=== PATIENT | male | born 1930 | race Caucasian/White ===

== ENCOUNTER 2018-08-13 09:44 | Emergency (ER) | payer MEDICARE, BC ==
--- NOTE | 2018-08-13 10:49 | EDM.PDOC ---
ED HPI GENERAL MEDICAL PROBLEM - General Chief Complaint: Cardiovascular Problem Stated Complaint: Shortness of breath Time Seen by Provider: 08/13/18 10:20 Source of Information: Reports: Patient History Limitations: Reports: No Limitations - History of Present Illness INITIAL COMMENTS - FREE TEXT/NARRATIVE: Patient sent to the ER from the [facility] for complaint of SOB. Usually uses O2 at night for COPD. The overall increased SOB has been present "for some time" per patient, but got noticeably worse over the last 48 hours. Neb treatments given were helpful for "5 minutes". He denies any other acute changes other than increased fluid retention in the lower extremities. No other signs of illness reported. Denies HEENT changes/URI complaints. No cough or mucus production. - Related Data Allergies Allergy/AdvReac Type Severity Reaction Status Date / Time Penicillins Allergy Facial Verified 08/13/18 10:13 Swelling Home Meds: Home Meds Acyclovir 200 mg PO DAILY 08/13/18 [History] Albuterol [Ventolin HFA] 2 puff INH Q6H PRN 08/13/18 [History] Albuterol/Ipratropium [DuoNeb 3.0-0.5 MG/3 ML] 1 vial INH Q4H PRN 08/13/18 [ History] Allopurinol [Zyloprim] 50 mg PO DAILY 08/13/18 [History] Budesonide/Formoterol [Symbicort 160-4.5 MCG] 2 puff INH BID@08,20 08/13/18 [ History] Cetirizine [ZyrTEC] 10 mg PO DAILY 08/13/18 [History] Cholecalciferol (Vitamin D3) [Vitamin D3] 1,000 unit PO DAILY 08/13/18 [History] Cyanocobalamin (Vitamin B-12) [Vitamin B-12] 1,000 mcg PO DAILY 08/13/18 [ History] Finasteride 5 mg PO DAILY@169908/13/18 [History] Fish Oil/[place]-3 Fatty Acids [Fish Oil 1,000 MG] 1,000 mg PO DAILY 08/13/18 [ History] Fluticasone Propionate [Flonase] 2 spray NASBOTH DAILY 08/13/18 [History] Furosemide 20 mg PO DAILY 08/13/18 [History] Gabapentin [Neurontin] 300 mg PO DAILY@17008/13/18 [History] Gabapentin [Neurontin] 600 mg PO BID@08,08/13/18 [History] Insulin Glarg,Human.Rec.Analog [Lantus] 35 units SUBCUT DAILY@0600 08/13/18 [ History] Isosorbide Mononitrate [Isosorbide Mononitrate ER] 60 mg PO DAILY 08/13/18 [ History] Lanolin/Min Oil/NaCl/Pet,Wh [Lubriderm Daily Moisture Lotion] 1 applic TOP ASDIRECTED PRN 08/13/18 [History] Lisinopril 5 mg PO BEDTIME 08/13/18 [History] Magnesium Oxide 420 mg PO DAILY 08/13/18 [History] Metoprolol Tartrate 12.5 mg PO BID@,08/13/18 [History] Ondansetron [Zofran] 4 mg PO Q4H PRN 08/13/18 [History] Phenylephrine HCl [Sudogest PE] 10 mg PO Q6H PRN 08/13/18 [History] Ranitidine [Zantac] 150 mg PO DAILY 08/13/18 [History] Terazosin [Hytrin] 5 mg PO BEDTIME 08/13/18 [History] Tiotropium [Spiriva HandiHaler] 2 puff INH DAILY 08/13/18 [History] Urea [Urea 20% Crm] 1 applic TOP BID@,20 08/13/18 [History] amLODIPine Besylate [Amlodipine Besylate] 10 mg PO DAILY 08/13/18 [History] glipiZIDE [Glucotrol] 10 mg PO BID@08,08/13/18 [History] hydrALAZINE [Apresoline] 10 mg PO BID@,20 08/13/18 [History] predniSONE [Prednisone] 5 mg PO DAILY 08/13/18 [History] Past Medical History HEENT History: Reports: Hard of Hearing, Impaired Vision, Macular Degeneration Cardiovascular History: Reports: Bypass, CAD, Heart Failure, High Cholesterol, [place] Respiratory History: Reports: COPD, Pulmonary Fibrosis Gastrointestinal History: Reports: GERD Genitourinary History: Reports: BPH, Chronic Renal Insuffiency Musculoskeletal History: Reports: Back Pain, Chronic, Gout, Osteoarthritis Endocrine/Metabolic History: Reports: IDDM Hematologic History: Reports: Anemia Oncologic (Cancer) History: Reports: Bladder Social & Family History - Tobacco Use Smoking Status *Q: Former Smoker (quit 30 years ago) - Caffeine Use Caffeine Use: Reports: Coffee, Soda - Alcohol Use Alcohol Use Frequency: Rarely - Recreational Drug Use Recreational Drug Use: No Drug Use in Last 12 Months: No ED ROS GENERAL - Review of Systems Review Of Systems: See Below Constitutional: Reports: No Symptoms HEENT: Reports: No Symptoms, Glasses Respiratory: Reports: Shortness of Breath. Denies: Wheezing, Pleuritic Chest Pain, Cough, Sputum, Hemoptysis Cardiovascular: Reports: Dyspnea on Exertion, Edema. Denies: Chest Pain, Palpitations GI/Abdominal: Reports: No Symptoms : Reports: No Symptoms Musculoskeletal: Reports: No Symptoms Skin: Reports: No Symptoms Neurological: Reports: No Symptoms Psychiatric: Reports: No Symptoms ED EXAM, GENERAL - Physical Exam Exam: See Below Exam Limited By: No Limitations General Appearance: Alert, WD/WN, No Apparent Distress, Obese Eye Exam: Bilateral Eye: EOMI, PERRL Ears: Normal External Exam Nose: No: Nasal Deformity, Nasal Swelling, Nasal Drainage Throat/Mouth: Normal Lips, Normal Voice, No Airway Compromise Head: Atraumatic, Normocephalic Neck: Supple, Non-Tender Respiratory/Chest: No Respiratory Distress, Rales (bilateral, lower half lungs) . No: Stridor, Accessory Muscle Use, Retractions, Splinting Cardiovascular: Bradycardia (pulse 28) Peripheral Pulses: 3+: Radial (L), Radial (R) GI/Abdominal: Normal Bowel Sounds, Soft, Non-Tender (Male) Exam: Deferred Rectal (Males) Exam: Deferred Back Exam: Normal Inspection Extremities: Non-Tender, Normal Capillary Refill, Pedal Edema (mild edema bilaterally) Neurological: Alert, Oriented, Normal Cognition, No Motor/Sensory Deficits Psychiatric: Normal Affect, Normal Mood Skin Exam: Warm, Dry, Intact, Normal Color EKG INTERPRETATION EKG Date: 08/13/18 Time: 09:49 Rhythm: Other (Sinus Bradycardia/1st degree AV block/bigeminy) Rate (Beats/Min): 57 [place]: Normal P-Wave: Present QRS: Normal ST-T: Normal QT: Normal Comparison: NA - No Prior EKG Course - Vital Signs Last Recorded V/S: Last Vital Signs Temp 36.6 C 08/13/18 10:07 Pulse 57 L 06/15/19 10:07 Resp 17 08/13/18 11:34 BP 132/48 L 08/13/18 11:34 Pulse Ox 97 08/13/18 11:34 - Orders/Labs/Meds Orders: Active Orders 24 hr Category Date Time Status EKG Documentation Completion [RC] ASDIRECTED Care 08/13/18 10:01 Active Chest 2V [CR] Stat Exams 08/13/18 10:01 Taken UA W/MICROSCOPIC [URIN] Stat Lab 08/13/18 10:03 Ordered Labs: Laboratory Tests 08/13/18 08/13/18 08/13/18 Range/Units 10:20 10:20 10:20 WBC 9.1 (4.0-10.2) K/uL RBC 3.35 L (4.33-5.41) M/uL Hgb 10.1 L (13.1-16.8) g/dL Hct 31.3 L (39.0-49.0) % MCV 93.4 (84.0-98.0) fL MCH 30.1 (28.2-33.3) pg MCHC 32.3 (31.7-36.0) g/dL RDW 14.3 H (11.2-14.1) % Plt Count 219 (150-350) K/uL Neut % (Auto) 70.7 (45.0-80.0) % Lymph % (Auto) 18.4 (10.0-50.0) % [place] % (Auto) 9.3 (2.0-14.0) % Eos % (Auto) 1.4 (0.0-5.0) % Baso % (Auto) 0.2 (0.0-2.0) % Neut # (Auto) 6.41 (1.40-7.00) K/uL Lymph # (Auto) 1.67 (0.50-3.50) K/uL [place] # (Auto) 0.84 (0.00-1.00) K/uL Eos # (Auto) 0.13 (0.00-0.50) K/uL Baso # (Auto) 0.02 (0.00-0.20) K/uL Sodium 144 (136-145) mmol/L Potassium 3.8 (3.5-5.1) mmol/L Chloride 108 H (98-107) mmol/L Carbon Dioxide 26.9 (21.0-32.0) mmol/L BUN 42 H (7-18) mg/dL Creatinine 2.37 H (0.51-1.17) mg/dL Est Cr Clr Drug Dosing 21.82 mL/min Estimated GFR (MDRD) 26 mL/min Glucose 60 L (74-106) mg/dL POC Glucose (65-110) mg/dl Calcium 8.7 (8.5-10.1) mg/dL Magnesium 2.2 (1.8-2.4) mg/dL Total Bilirubin 0.4 (0.2-1.0) mg/dL AST 32 (15-37) U/L ALT 89 H (12-78) U/L Alkaline Phosphatase 88 (46-116) IU/L Troponin I 0.010 (0.000-0.056) ng/mL NT-Pro-B Natriuret Pep 2627 H (0-125) pg/mL Total Protein 6.2 L (6.4-8.2) g/dL Albumin 2.9 L (3.4-5.0) g/dL 08/13/18 Range/Units 10:59 WBC (4.0-10.2) K/uL RBC (4.33-5.41) M/uL Hgb (13.1-16.8) g/dL Hct (39.0-49.0) % MCV (84.0-98.0) fL MCH (28.2-33.3) pg MCHC (31.7-36.0) g/dL RDW (11.2-14.1) % Plt Count (150-350) K/uL Neut % (Auto) (45.0-80.0) % Lymph % (Auto) (10.0-50.0) % [place] % (Auto) (2.0-14.0) % Eos % (Auto) (0.0-5.0) % Baso % (Auto) (0.0-2.0) % Neut # (Auto) (1.40-7.00) K/uL Lymph # (Auto) (0.50-3.50) K/uL [place] # (Auto) (0.00-1.00) K/uL Eos # (Auto) (0.00-0.50) K/uL Baso # (Auto) (0.00-0.20) K/uL Sodium (136-145) mmol/L Potassium (3.5-5.1) mmol/L Chloride (98-107) mmol/L Carbon Dioxide (21.0-32.0) mmol/L BUN (7-18) mg/dL Creatinine (0.51-1.17) mg/dL Est Cr Clr Drug Dosing mL/min Estimated GFR (MDRD) mL/min Glucose (74-106) mg/dL POC Glucose 67 (65-110) mg/dl Calcium (8.5-10.1) mg/dL Magnesium (1.8-2.4) mg/dL Total Bilirubin (0.2-1.0) mg/dL AST (15-37) U/L ALT (12-78) U/L Alkaline Phosphatase (46-116) IU/L Troponin I (0.000-0.056) ng/mL NT-Pro-B Natriuret Pep (0-125) pg/mL Total Protein (6.4-8.2) g/dL Albumin (3.4-5.0) g/dL - Radiology Interpretation Free Text/Narrative:: Chest xray suggests mild increase cardiac size and CHF - Re-Assessments/Exams Free Text/Narrative Re-Assessment/Exam: Monitor showed heart rate of 56, pulse however 28. Bigeminy on EKG. Suspect that recent exacerbation of SOB likely due to this profound bradycardia, even though patient says that he has had a heart rate in the past and was told that it was not problematic. Elevated BUN/Cr/proBNP. Hgb 10.1 Call placed to [facility] and arrangements made with to transfer patient to their facility for further evaluation/care and probable pacemaker placement. Vital signs stable. Patient given small meal in ER due to lower blood sugar noted on labs. Departure - Departure Time of Disposition: 11:51 Disposition: DC/Tfer to [facility] 02 Reason for Transfer *Q: Other Clinical Impression: Symptomatic bradycardia, Renal insufficiency CHF (congestive heart failure) Qualifiers: Heart failure type: unspecified Heart failure chronicity: acute on chronic Qualified Code(s): I50.9 - Heart failure, unspecified Referrals: Sheets-Savannah Patel MD [Primary Care Provider] - Forms: ED Department Discharge - My Orders Last 24 Hours: My Active Orders 08/13/18 10:01 EKG Documentation Completion [RC] ASDIRECTED Chest 2V [CR] Stat 08/13/18 10:03 UA W/MICROSCOPIC [URIN] Stat - Assessment/Plan Last 24 Hours: My Active Orders 08/13/18 10:01 EKG Documentation Completion [RC] ASDIRECTED Chest 2V [CR] Stat 08/13/18 10:03 UA W/MICROSCOPIC [URIN] Stat
== END 2018-08-13 12:05 ==
LOC: LL.ED 09:44
DX: I50.9 Heart failure, unspecified (principal); R00.1 Bradycardia, unspecified; N18.9 Chronic kidney disease, unspecified; E11.22 Type 2 diabetes mellitus with diabetic chronic kidney disease; I25.10 Atherosclerotic heart disease of native coronary artery without angina pectoris; Z95.1 Presence of aortocoronary bypass graft; I25.2 Old myocardial infarction; Z79.899 Other long term (current) drug therapy; Z79.4 Long term (current) use of insulin; M10.9 Gout, unspecified; M19.90 Unspecified osteoarthritis, unspecified site; Z88.0 Allergy status to penicillin; Z87.891 Personal history of nicotine dependence
CPT/HCPCS: 36000; 36415; 71046; 80053; 82962; 83735; 83880; 84484; 85025; 93005; 99285-25

== ENCOUNTER 2018-08-16 21:25 | Emergency (ER) | payer MEDICARE, BC ==
--- NOTE | 2018-08-16 21:52 | EDM.PDOC ---
ED HPI GENERAL MEDICAL PROBLEM - General Chief Complaint: Cardiovascular Problem Stated Complaint: shortness of breath Time Seen by Provider: 08/16/18 21:51 Source of Information: Reports: Patient, Alf Records, Old Records ([facility] EMR. No paper hospital chart available.), Other ( [facility]) History Limitations: Reports: Other (Presbycusis) - History of Present Illness INITIAL COMMENTS - FREE TEXT/NARRATIVE: The patient was driven to the emergency room via transport vehicle from [facility] for evaluation of persistent and recurrent bradycardia with previous emergency room evaluation in this facility on 08/13/18 and subsequent transfer to [facility] in [place]. Patient was discharged from that facility earlier today with cardiology consultation and evaluation. By the patient history he is not a pacemaker candidate with echocardiogram, etc. performed in that facility as below. He has a long history of known bradycardia and PVCs and is completely nonsymptomatic with exception of intermittent persistent nonspecific dyspnea with activity. Note that the patient has been noncompliant with his nebulizer treatments despite his history of both steroid and O2 dependent COPD. The patient denies any chest pain/ pressure, heart flutter, dizziness, orthostasis, orthopnea, diaphoresis, paresthesias, recent decreased exercise tolerance, or any other anginal-type symptoms. No recent history of abdominal pain, heartburn, nausea, diarrhea, melena, gross hematochezia, or any food intolerance, including fatty foods, etc.. No recent history of gross hematuria, colic, or other UTI symptoms. The patient also denies any recent fever, cough, wheezing, etc.. He denies any specific pain or discomfort. Onset: Today, Unknown/Unsure Onset Date: 08/16/18 Duration: Other (As above) Context: Reports: Other (As above). Denies: Sick Contact, Trauma Associated Symptoms: Reports: Shortness of Breath. Denies: Confusion, Chest Pain, Cough, Diaphoresis, Fever/Chills, Headaches, Loss of Appetite, Malaise, Nausea/Vomiting, Seizure, Syncope, Weakness Treatments RESOURCE DEVELOPMENT MANAGER: Reports: Other (see below) (None) - Related Data Allergies Allergy/AdvReac Type Severity Reaction Status Date / Time Penicillins Allergy Facial Verified 08/13/18 10:13 Swelling Home Meds: Home Meds Albuterol [Ventolin HFA] 2 puff INH Q6H PRN 08/13/18 [History] Albuterol/Ipratropium [DuoNeb 3.0-0.5 MG/3 ML] 1 vial INH Q4H PRN 08/13/18 [ History] Allopurinol [Zyloprim] 50 mg PO DAILY 08/13/18 [History] Cetirizine [ZyrTEC] 10 mg PO DAILY 08/13/18 [History] Cholecalciferol (Vitamin D3) [Vitamin D3] 1,000 unit PO DAILY 08/13/18 [History] Cyanocobalamin (Vitamin B-12) [Vitamin B-12] 1,000 mcg PO DAILY 08/13/18 [ History] Finasteride 5 mg PO DAILY@169908/13/18 [History] Fish Oil/[place]-3 Fatty Acids [Fish Oil 1,000 MG] 1,000 mg PO DAILY 08/13/18 [ History] Fluticasone Propionate [Flonase] 2 spray NASBOTH DAILY 08/13/18 [History] Furosemide 20 mg PO DAILY 08/13/18 [History] Gabapentin [Neurontin] 300 mg PO DAILY@169908/13/18 [History] Gabapentin [Neurontin] 600 mg PO BID@08/13/18 [History] Insulin Glarg,Human.Rec.Analog [Lantus] 35 units SUBCUT DAILY@0608/13/18 [ History] Isosorbide Mononitrate [Isosorbide Mononitrate ER] 60 mg PO DAILY 08/13/18 [ History] Lanolin/Min Oil/NaCl/Pet,Wh [Lubriderm Daily Moisture Lotion] 1 applic TOP ASDIRECTED PRN 08/13/18 [History] Lisinopril 5 mg PO BEDTIME 08/13/18 [History] Magnesium Oxide 420 mg PO DAILY 08/13/18 [History] Ondansetron [Zofran] 4 mg PO Q4H PRN 08/13/18 [History] Ranitidine [Zantac] 150 mg PO DAILY 08/13/18 [History] Terazosin [Hytrin] 5 mg PO BEDTIME 08/13/18 [History] Tiotropium [Spiriva HandiHaler] 2 puff INH DAILY 08/13/18 [History] Urea [Urea 20% Crm] 1 applic TOP BID@08,20 08/13/18 [History] amLODIPine Besylate [Amlodipine Besylate] 10 mg PO DAILY 08/13/18 [History] glipiZIDE [Glucotrol] 10 mg PO BID@08,17 08/13/18 [History] hydrALAZINE [Apresoline] 10 mg PO BID@08,20 08/13/18 [History] Aspirin [Adult Low Dose Aspirin EC] 81 mg PO DAILY 08/16/18 [History] Budesonide/Formoterol [Symbicort 160-4.5 MCG] 2 inh INH BID 08/16/18 [History] Carbamide Peroxide [Debrox 6.5% Otic Soln] 3 drop EARRT BID 08/16/18 [History] Furosemide 40 mg PO DAILY 08/16/18 [History] Insulin Glarg,Human.Rec.Analog [Lantus] 10 units SUBCUT 199908/16/18 [History] Past Medical History HEENT History: Reports: Allergic Rhinitis, Hard of Hearing, Impaired Vision, Macular Degeneration, Other (See Below) Other HEENT History: Patient wears glasses. Bilateral presbycusis with suboptimal bilaterally hearing aid therapy. Chronic tinnitus. Cardiovascular History: Reports: Arrhythmia, Bypass, CAD, Cardiomyopathy, Heart Failure, Heart Murmur, High Cholesterol, Hypertension, AR, PTCA, Pulmonary Hypertension, Stents, Other (See Below) Other Cardiovascular History: Systolic/diastolic dysfunction with recurrent CHF. Moderate mitral valve insufficiency, mild aortic valve insufficiency, left atrial enlargement, and mild pulmonary hypertension by echocardiogram in 2019 as below. Long history of bradycardia, bigeminy, and frequent PVCs with newly diagnosed first-degree AV block on 08/14/18. Hypertension and hypotension. Respiratory History: Reports: Bronchitis, Recurrent, COPD, Intubation, Previous , Pneumonia, Recurrent, Pulmonary Fibrosis, Other (See Below). Denies: Intubation, Difficult Other Respiratory History: Nocturnal O2 dependent COPD and pulmonary fibrosis with previous steroid-dependent COPD. Gastrointestinal History: Reports: Cholelithiasis, GERD, Other (See Below) Other Gastrointestinal History: Nonsymptomatic cholelithiasis. Genitourinary History: Reports: BPH, Chronic Renal Insuffiency Musculoskeletal History: Reports: Arthritis, Back Pain, Chronic, Gout, Neck Pain , Chronic, Osteoarthritis, Osteoporosis. Denies: RA, SLE Neurological History: Reports: Neuropathy, Diabetic, Neuropathy, Peripheral, Other (See Below) Other Neuro History: Stage IV diabetic nephropathy. Endocrine/Metabolic History: Reports: Diabetes, Type II, IDDM, Obesity/BMI 30+, Osteopenia, Osteoporosis, Vitamin D Deficiency, Other (See Below) Other Endocrine/Metabolic History: Hypomagnesemia. Hypokalemia. Hypoalbuminemia. Hematologic History: Reports: Anemia, B12 Deficiency Oncologic (Cancer) History: Reports: Bladder - Past Surgical History Cardiovascular Surgical History: Reports: Coronary Artery Stent, Percutaneous Transluminal Angioplasty GI Surgical History: Reports: Hernia, Inguinal, Other (See Below). Denies: Cholecystectomy Other GI Surgeries/Procedures: Right inguinal hernia repair in the 1970s. - Past Imaging History Past Imaging History: Reports: Cardiac Echo (08/13/18 with ejection fraction of 60% and findings as above.), CAT Scan (CT of the chest, abdomen, and pelvis on .) Social & Family History - Tobacco Use Smoking Status *Q: Former Smoker Packs/Tins Daily Comment: Discontinued tobacco use in the . Used Tobacco, but Quit: Yes Smoking Cessation Information Provided To Patient: No Second Hand Smoke Exposure: No Second Hand Smoke Education Provided: No - Caffeine Use Caffeine Use: Reports: Coffee, Soda - Living Situation & Occupation Living situation: Reports: Extended Care Facility ( in [facility]) ED ROS GENERAL - Review of Systems Review Of Systems: ROS reveals no pertinent complaints other than HPI. ED EXAM, GENERAL - Physical Exam Exam: See Below Exam Limited By: No Limitations General Appearance: Alert, WD/WN, No Apparent Distress Eye Exam: Bilateral Eye: EOMI, Normal Inspection (No nystagmus. Patient wearing glasses), PERRL Ears: Normal External Exam, Hearing Loss (Severe bilateral presbycusis with suboptimal bilateral hearing aid therapy). No: Hearing Grossly Normal Nose: Normal Inspection, Normal Mucosa, No Blood Throat/Mouth: Normal Lips, Normal Gums, Normal Oropharynx, Normal Voice, No Airway Compromise. No: Normal Teeth (Complete upper dentures with missing teeth lowers), Dysphagia, Perioral Cyanosis Head: Atraumatic, Normocephalic. No: Facial Swelling, Facial Tenderness, Sinus Tenderness Neck: Supple, Non-Tender, Full Range of Motion, Carotid Bruit (Mild bilateral carotid bruits versus transmitted heart sounds). No: Lymphadenopathy (L), Lymphadenopathy (R), Thyromegaly Respiratory/Chest: No Respiratory Distress, No Accessory Muscle Use, Chest Non- Tender, Rales (Mild bilateral basilar rales). No: Rhonchi, Wheezing, Pleural Rub, Retractions Cardiovascular: Normal Peripheral Pulses, No Rub, Systolic Murmur (2/6 ERYN over the mitral valve with borderline 1/6 ERYN of the aortic valve), Extra Beats ( Frequent PVCs as below). No: Diastolic Murmur (Aortic diastolic murmur not appreciated), Gallop/S3, Gallop/S4, Friction Rub Peripheral Pulses: 1+: Dorsalis Pedis (L), Dorsalis Pedis (R), 2+: Radial (L), Radial (R) GI/Abdominal: Normal Bowel Sounds, Soft, Non-Tender, No Organomegaly, No Distention, No Abnormal Bruit, No Mass, Other (Obese. Mild areas of ecchymosis on the abdomen secondary to his insulin injections.). No: Guarding (Male) Exam: Deferred Rectal (Males) Exam: Deferred Back Exam: Full Range of Motion, Other (Mild kyphosis). No: CVA Tenderness (L) , CVA Tenderness (R), Muscle Spasm, Paraspinal Tenderness, Vertebral Tenderness Extremities: Normal Range of Motion, Non-Tender, Normal Capillary Refill, Pedal Edema (+1 bilateral pedal/pretibial edema), Other (Mild ecchymosis on the forearms bilaterally). No: No Pedal Edema, Lionel's Sign Neurological: Alert, Oriented, CN II-XII Intact, Normal Cognition, Normal Gait, No Motor/Sensory Deficits Skin Exam: Warm, Dry, Intact, Normal Color, No Rash, Ecchymosis (As above). No : Diaphoretic, Petechiae, Wound/Incision Lymphatic: No Adenopathy Course - Vital Signs Last Recorded V/S: Last Vital Signs Temp 37.0 C 08/16/18 21:54 Pulse 66 08/16/18 22:30 Resp 16 08/16/18 22:30 BP 161/70 H 08/16/18 22:30 Pulse Ox 93 L 08/16/18 22:30 Vital Signs - 24 hr 08/16/18 08/16/18 08/16/18 21:54 22:25 22:30 Temperature [ 37.0 C Oral] Pulse, 65 68 66 Peripheral [ Left Pulse Oximetry] Respiratory 15 14 16 Rate Blood Pressure 174/68 H 178/79 H 161/70 H [Right Upper Arm] O2 Sat by Pulse 94 L 94 L 93 L Oximetry - Orders/Labs/Meds Labs: None Meds: None - Radiology Interpretation Free Text/Narrative:: Shredding Specialist shows normal sinus rhythm in the 60s to 70s with frequent uniform PVCs and brief episodes of recurrent bigeminy Departure - Departure Time of Disposition: 22:50 Disposition: Home, Self-Care 01 Condition: Good Clinical Impression: Sinus bradycardia, PVCs (premature ventricular contractions), First degree AV block, IDDM (insulin dependent diabetes mellitus), Renal insufficiency, Osteoarthritis, Hypertension, Comfort measures only status Coronary artery disease Qualifiers: Coronary Disease-Associated Artery/Lesion type: [place] artery [place] vs. transplanted heart: [place] heart Associated angina: without angina Qualified Code(s): I25.10 - Atherosclerotic heart disease of [place] coronary artery without angina pectoris CHF (congestive heart failure) Qualifiers: Heart failure type: unspecified Heart failure chronicity: chronic Qualified Code(s): I50.9 - Heart failure, unspecified COPD (chronic obstructive pulmonary disease) Qualifiers: COPD type: emphysema Emphysema type: panlobular Qualified Code(s): J43.1 - Panlobular emphysema Referrals: Sheets-Savannah Patel MD [Primary Care Provider] - Forms: ED Department Discharge Additional Instructions: 1. Update regular providers in the a.m. concerning emergency room visit and recent discharge from [facility], including multiple medication adjustments 2. Vital signs on a every shift basis with bradycardia to be expected secondary to patient's frequent PVCs with this nonsymptomatic at this time 3. Recommend repeat follow-up with regular provider within the next few days secondary to multiple medication adjustments as above and prior to decrease of his recently increased Lasix therapy with recommended repeat EKG, chest x-ray, basic metabolic panel, etc. 4. Continue to observe his blood pressures closely and update regular provider tomorrow as above with blood pressure somewhat elevated in the emergency room today. 5. Recommend DuoNeb treatments on at least a TID regular basis secondary to his COPD and history of bradycardia. Discuss this further with regular provider tomorrow. 6. Fall precautions. 7. Patient is requesting a NO CODE STATUS today - Problem List & Annotations (1) Sinus bradycardia SNOMED Code(s): 50687881 Code(s): R00.1 - BRADYCARDIA, UNSPECIFIED Status: Chronic Priority: High Annotation/Comment:: Known chronic bradycardia secondary to frequent PVCs and occasional bigeminy. Patient is completely nonsymptomatic with extensive cardiac workup and consultation during recent hospitalization at [facility] in [place] as above. He was discharged from that facility earlier this morning with EKG, blood work, etc. conducted prior to discharge. [place] records were reviewed by me today through the EMR system. Secondary to the above history, recent blood work, etc. I did not feel that additional repeat EKG , blood work, chest x-ray, etc. was warrented especially since patient is completely nonsymptomatic at this time. He also does not wish to have extensive workup this evening. The patient's beta salomón therapy was discontinued during the above hospitalization. (2) PVCs (premature ventricular contractions) SNOMED Code(s): 93427520 Code(s): I49.3 - VENTRICULAR PREMATURE DEPOLARIZATION Status: Chronic Priority: High Annotation/Comment:: As above and also known first-degree AV block. (3) Coronary artery disease SNOMED Code(s): 53834259 Code(s): I25.10 - ATHSCL HEART DISEASE OF [place] CORONARY ARTERY W/O ANG PCTRS Status: Chronic Priority: Medium Annotation/Comment:: No chest pain or anginal type symptoms. Otherwise as above Qualifiers: Coronary Disease-Associated Artery/Lesion type: [place] artery [place] vs. transplanted heart: [place] heart Associated angina: without angina Qualified Code(s): I25.10 - Atherosclerotic heart disease of [place] coronary artery without angina pectoris (4) Comfort measures only status SNOMED Code(s): 79714811116416 Code(s): Z51.5 - ENCOUNTER FOR PALLIATIVE CARE Status: Chronic Priority: Medium Annotation/Comment:: Comfort care/palliative status confirmed with the patient today. (5) Hypertension SNOMED Code(s): 34878042 Code(s): I10 - ESSENTIAL (PRIMARY) HYPERTENSION Status: Chronic Priority : Medium Annotation/Comment:: Note recent hospitalization and medication adjustments as above. Blood pressure somewhat elevated in the emergency room today. Continue to observe closely by long term staff and regular providers as per discharge instructions. Qualifiers: Hypertension type: essential hypertension Qualified Code(s): I10 - Essential (primary) hypertension (6) COPD (chronic obstructive pulmonary disease) SNOMED Code(s): 13759611 Code(s): J44.9 - CHRONIC OBSTRUCTIVE PULMONARY DISEASE, UNSPECIFIED Status : Chronic Priority: Medium Annotation/Comment:: No recent fever or bronchitic type symptoms with the patient not having used his nebulizers for the last few days despite his history of previous steroid and O2 dependent COPD. Secondary to his bradycardia and significant pulmonary disease I did recommend that the patient have nebulizer treatments at least on a 3 times a day basis. Close follow-up by regular provider as per discharge instructions. Qualifiers: COPD type: emphysema Emphysema type: panlobular Qualified Code(s): J43.1 - Panlobular emphysema (7) CHF (congestive heart failure) SNOMED Code(s): 61335199 Code(s): I50.9 - HEART FAILURE, UNSPECIFIED Status: Chronic Priority: Medium Annotation/Comment:: Note recent echocardiogram and recent hospital discharge with cardiology consultation as above. Lasix was increased during recent hospitalization with repeat evaluation and blood work recommended prior to decreasing his Lasix therapy as per discharge instructions from [facility] Qualifiers: Heart failure type: combined systolic and diastolic Heart failure chronicity: chronic Qualified Code(s): I50.42 - Chronic combined systolic ( congestive) and diastolic (congestive) heart failure (8) Osteoarthritis SNOMED Code(s): 563162734 Code(s): M19.90 - UNSPECIFIED OSTEOARTHRITIS, UNSPECIFIED SITE Status: Chronic Priority: Medium Annotation/Comment:: Stable by history Qualifiers: Osteoarthritis location: multiple joints Osteoarthritis type: primary Qualified Code(s): M15.0 - Primary generalized (osteo)arthritis (9) Renal insufficiency SNOMED Code(s): 125104337, 514581947 Code(s): N28.9 - DISORDER OF KIDNEY AND URETER, UNSPECIFIED Status: Chronic Priority: Medium Annotation/Comment:: Known diabetic nephropathy and diabetic neuropathy. Continue to observe closely by regular providers. Note blood work conducted earlier today at [facility] (10) IDDM (insulin dependent diabetes mellitus) SNOMED Code(s): 80345650 Code(s): E11.9 - TYPE 2 DIABETES MELLITUS WITHOUT COMPLICATIONS; Z79.4 - HAND TOOL LAPPER (CURRENT) USE OF INSULIN Status: Chronic Priority: Medium Annotation/Comment:: Continue to observe closely by his regular provider. - Problem List Review Problem List Initiated/Reviewed/Updated: Yes - Assessment/Plan Assessment:: As above Plan: As above. Extensive precautions were given to the patient and long term staff , who are in agreement with the treatment plan. See Patient Instructions for further treatment and plan. A copy of today's emergency room note will be submitted to the long term.
== END 2018-08-16 22:40 | disposition home or self-care (01) ==
LOC: LL.ED 21:25
DX: I44.0 Atrioventricular block, first degree (principal); J43.1 Panlobular emphysema; I13.0 Hypertensive heart and chronic kidney disease with heart failure and stage 1 through stage 4 chronic kidney disease, or unspecified chronic kidney disease; I50.9 Heart failure, unspecified; N18.9 Chronic kidney disease, unspecified; R00.0 Tachycardia, unspecified; I49.3 Ventricular premature depolarization; Z79.84 Long term (current) use of oral hypoglycemic drugs; M19.90 Unspecified osteoarthritis, unspecified site; Z88.0 Allergy status to penicillin; Z79.899 Other long term (current) drug therapy; Z79.82 Long term (current) use of aspirin; Z79.4 Long term (current) use of insulin; Z87.891 Personal history of nicotine dependence; I25.10 Atherosclerotic heart disease of native coronary artery without angina pectoris; Z51.5 Encounter for palliative care
CPT/HCPCS: 93010; 99283; 99284